=== PATIENT | female | born 1955 | race Caucasian/White ===

== ENCOUNTER 2019-09-18 16:03 | Observation (INO) | payer BC ==
--- NOTE | 2019-09-18 17:27 | RAD REPORT ---
EXAM DESCRIPTION: RAD - Chest Single View - 09/18/2019 5:13 pm CLINICAL HISTORY: COUGH Chest pain. COMPARISON: CHEST SINGLE VIEW dated 03/22/2013 FINDINGS: Portable technique limits examination quality. The lungs are grossly clear. The heart is normal in size. No displaced fractures. IMPRESSION: No acute intrathoracic process suspected.
[2019-09-18] MEDS ORDERED: NA CHLORIDE 0.9% 500 ML ONE (17:42)
[2019-09-18] MEDS ORDERED: ONDANSETRON 4 MG/2 ML VIAL ONE (17:42)
[2019-09-18] MEDS ORDERED: NA CHLORIDE 0.9% 1,000 ML ONE (17:42)
[2019-09-18 17:50] LABS: Protime INR 0.79
[2019-09-18 18:07] LABS: ALT/SGPT 28 U/L (12-78); AST/SGOT 15 U/L (15-37); Albumin 3.8 g/dL (3.4-5.0); Alkaline Phosphatase 78 U/L (45-117); BUN Blood Urea Nitrogen 21 mg/dL (7-18); Bicarbonate 30 mmol/L (21-32); Bilirubin Direct 0.2 mg/dL (0-0.2); Bilirubin Total 0.8 mg/dL (0.2-1.0); Glucose Level 118 mg/dL (74-106); Lipase 224 U/L (73-393); Magnesium 2.1 mg/dL (1.8-2.4); NT PRO-BNP 108 pg/mL (<125); Potassium 3.2 mmol/L (3.5-5.1); Protein, Total 7.2 g/dL (6.4-8.2); Sodium Level 124 mmol/L (136-145); Troponin (Emerg Dept Use Only) < 0.02 ng/mL (0.0-0.045)
[2019-09-18 18:09] LABS: Absolute Lymphocytes (CBC) 1.2 K/uL (0.7-4.9); Basophils % 0.3 % (0-1.3); Hematocrit 44.4 % (36.0-45.0); Lymphocytes % 12.7 % (15.3-44.8); MPV 6.9 fL (7.6-11.3); RBC Red Blood Cell Count 4.19 M/uL (3.86-4.86)
--- OUTSIDE RECORDS SUMMARY | 2019-09-18 18:51 | XMS REPORT | Continuity of Care Document ---
:1955 Author Organization [facility] t Address [address] [place] [address] Dr. Rose [address] [place] [id number] Care Team Providers Name Role Phone Unavailable Unavailable Unavailable Problems This patient has no known problems. Allergies, Adverse Reactions, Alerts This patient has no known allergies or adverse reactions. Medications This patient has no known medications. Procedures This patient has no known procedures. Results Test Description Test Time Test Comments Results Result Comments Source Morphology 2018-10-02 15:10:20 Test Item Value Reference Range Interpretation Comme nts RBC Morph (test code = RBC Morph) As Indicated Normal A Macrocyte (test code = Macrocyte) 1+ A Polychrom (test code = Polychrom) 1+ A Plt Estimation (test code = Plt Estimation) Normal Normal Complete Blood Count with [id number] 15:09:54 Test Item Value Reference Range Interpretation Comments WBC (test code = WBC) 11.4 x10 4.8-10.8 H RBC (test code = RBC) 4.88 x10 4.20-5.50 Hgb (test code = Hgb) 18.5 g/dL 12.0-16.0 H MCV (test code = MCV) 109.8 fL 80.0-95.0 H Hct (test code = Hct) 53.6 % 35.0-47.0 H MCHC (test code = MCHC) 34.5 g/dL 31.0-36.0 RDW (test code = RDW) <10.0 % 11.5-14.5 L MCH (test code = MCH) 37.9 pg 26.0-32.0 H Platelets (test code = 335 x10 140-440 Platelets) MPV (test code = MPV) 7.0 fL 7.5-11.2 L Slide Review (test code Smear Resu lt created by = Slide Review) GL_SET_SLIDE _REVIEW_A UTO Instr WBC (test code = 11.4 N Instr WBC) Comprehensive Metabolic [id number] 15:09:54 Test Item Value Reference Range Interpretation Comments Sodium Level (test code = 138 mmol/L 136-145 Sodium Level) Potassium Level (test code = 3.9 mmol/L 3.5-5.1 Potassium Level) Chloride Level (test code = 99 mmol/L 98-107 Chloride Level) CO2 (test code = CO2) 26 mmol/L 21-32 Anion Gap (test code = Anion 13 mmol/L 7-16 Gap) BUN (test code = BUN) 10 mg/dL 7-18 Creatinine Level (test code = 0.75 mg/dL 0.60-1.00 Creatinine Level) Glucose Level (test code = 98 mg/dL 74-106 Glucose Level) Calcium Level (test code = 8.6 mg/dL 8.5-10.1 Calcium Level) Alk Phos (test code = Alk Phos) 80 IntlUnit/L 50-136 Bilirubin Total (test code = .60 mg/dL .20-1.00 Bilirubin Total) Albumin Level (test code = 4.0 g/dL 3.4-5.0 Albumin Level) Protein Total (test code = 7.3 g/dL 6.4-8.2 Protein Total) ALT (test code = ALT) 26 IntlUnit/L 12-78 AST (test code = AST) 34 IntlUnit/L 15-37 Comprehensive Metabolic [id number] 15:09:54 Test Item Value Reference Range Interpretation Comments Sodium Level (test code = 138 mmol/L 136-145 Sodium Level) Potassium Level (test code 3.9 mmol/L 3.5-5.1 = Potassium Level) Chloride Level (test code 99 mmol/L 98-107 = Chloride Level) CO2 (test code = CO2) 26 mmol/L 21-32 Anion Gap (test code = 13 mmol/L 7-16 Anion Gap) BUN (test code = BUN) 10 mg/dL 7-18 Creatinine Level (test 0.75 mg/dL 0.60-1.00 code = Creatinine Level) Glucose Level (test code = 98 mg/dL 74-106 Glucose Level) Calcium Level (test code = 8.6 mg/dL 8.5-10.1 Calcium Level) Alk Phos (test code = Alk 80 IntlUnit/L 50-136 Phos) Bilirubin Total (test code .60 mg/dL .20-1.00 = Bilirubin Total) Albumin Level (test code = 4.0 g/dL 3.4-5.0 Albumin Level) Protein Total (test code = 7.3 g/dL 6.4-8.2 Protein Total) ALT (test code = ALT) 26 IntlUnit/L 12-78 AST (test code = AST) 34 IntlUnit/L 15-37 eGFR AA (test code = eGFR >60 mL/min/1.73 m2 N AA) Automated [id number] 15:09:54 Test Item Value Reference Range Interpretation Comments Neutro Auto (test code = Neutro Auto) 68.3 % N Lymph Auto (test code = Lymph Auto) 20.0 % N Kane Auto (test code = Kane Auto) 7.5 % N Eos, Auto (test code = Eos, Auto) 1.2 % N Basophil Auto (test code = Basophil 3.0 % N Auto) Neutro Absolute (test code = Neutro 7.8 x10 2.7-7.3 H Absolute) Lymph Absolute (test code = Lymph 2.3 x10 0.8-3.5 Absolute) Kane Absolute (test code = Kane 0.9 x10 0.3-0.9 Absolute) Eos Absolute (test code = Eos 0.1 x10 0.0-0.3 Absolute) Baso Absolute (test code = Baso 0.3 x10 0.0-0.1 H Absolute) Comprehensive Metabolic [id number] 15:09:54 Test Item Value Reference Range Interpretation Comments Sodium Level (test code = 138 mmol/L 136-145 Sodium Level) Potassium Level (test code 3.9 mmol/L 3.5-5.1 = Potassium Level) Chloride Level (test code 99 mmol/L 98-107 = Chloride Level) CO2 (test code = CO2) 26 mmol/L 21-32 Anion Gap (test code = 13 mmol/L 7-16 Anion Gap) BUN (test code = BUN) 10 mg/dL 7-18 Creatinine Level (test 0.75 mg/dL 0.60-1.00 code = Creatinine Level) Glucose Level (test code = 98 mg/dL 74-106 Glucose Level) Calcium Level (test code = 8.6 mg/dL 8.5-10.1 Calcium Level) Alk Phos (test code = Alk 80 IntlUnit/L 50-136 Phos) Bilirubin Total (test code .60 mg/dL .20-1.00 = Bilirubin Total) Albumin Level (test code = 4.0 g/dL 3.4-5.0 Albumin Level) Protein Total (test code = 7.3 g/dL 6.4-8.2 Protein Total) ALT (test code = ALT) 26 IntlUnit/L 12-78 AST (test code = AST) 34 IntlUnit/L 15-37 eGFR AA (test code = eGFR >60 mL/min/1.73 m2 N AA) eGFR Non-AA (test code = >60 mL/min/1.73 m2 N eGFR Non-AA) POC Troponin [id number] 14:50:52 Test Item Value Reference Range Interpretation Comments Troponin I, POC 0.00 ng/mL 0.00-0.08 0.6-1.9 ng/m l may indicate (test code = Myocardial Saniya ge2.0 ng/ml Troponin I, POC) is the diag nostic cutoff for Myocardial Damage. When diagnosing AMI, look for the serial rise and fall of Troponi Julio C conditions resu lting in myocardial cell damage can potentiallyincr ease cardiac Troponin I leve ls. These conditions incl ude, butare not limited to: angina, unstable angina , congestive heart faillure, myocarditis, cardiac surgery , or invasive testin g.Serial sampling as janak ropriate is recommended to detect the temporalrise an d fall of troponin levels .For diagnostic purp oses, the Troponin I resu lts should be used inconju nction with other informati on such as EKG, CKMB, clinicalobserva tions, symptons, etc. CT Brain/Head w/o [id number] 14:08:18Patient: SAM GARDNER Date/Time10/02/2018 13:54 CDTReason for ExamAltered level of consciousnessReportCT HEAD WITHOUT CONTRAST:HISTORY: Altered mental status, fall, forehead lacerationCOMPARISON: NoneMultiple transverse images were obtained through the head. Radiation reduction was achieved by using the radiographic principal of ALARA.No abnormal areas of density are seen in the brain. The ventricular system has a normal appearance.No evidence of hemorrhage, mass or acute infarction is observed.The paranasal sinuses and mastoid air cells are well aerated. Mild edema is seen in the kim scalp.IMPRESSION:1. No abnormalities seen in thebrain.2. Forehead scalp edema. Final Dictated by: MD Saroj, Praveen Mccarthyated DT/TM: 10/02/2018 2:07 pmSigned by: MD Kyle Ramon JulioSigned (Electronic Signature): 10/02/2018 2:08 pm
[2019-09-18] MEDS ORDERED: POTASSIUM 25 MEQ EFFERV TAB ONE (19:11)
[2019-09-18] MEDS ORDERED: NS KCL 20MEQ 1,000 ML IV ONE (19:11)
[2019-09-18] MEDS ORDERED: MORPHINE 4 MG/ML SYR IV PRN (20:02)
--- NOTE | 2019-09-18 20:21 | EDPHYS ---
Physician Documentation [facility] Name: Beth Melissa Age: 63 yrs Sex: Female : 1955 Arrival Date: 09/18/2019 Time: 16:08 Bed 14 Private MD: NICHOLE Physician Burton Walters HPI: 09/17 17:49 This 63 yrs old Female presents to ER via Wheelchair with complaints of prudence Fainting, Dizziness, Nausea/Vomiting. 17:49 The patient has experienced syncope, became unresponsive. Onset: The symptoms/episode prudence began/occurred yesterday. Duration: The patient has had multiple episodes, that last 20 second(s). Context: the episode(s) was witnessed, by family. Associated injury: The patient did not suffer any apparent associated injury. Associated signs and symptoms: Pertinent positives: WEAKNESS. Current symptoms: weakness. The patient has not experienced similar symptoms in the past. 17:51 The patient presents to the emergency department with nausea, that is moderate, prudence vomiting, that is continuous, diarrhea, that is intermittent. Possible causes: unknown. weak, n,v and diarrhea x 2 days , had 3 episodes today. Historical: - Allergies: 16:24 No Known Allergies; ll1 - PSHx: 16:24 ; Appendectomy; Tonsillectomy; Cholecystectomy; ll1 - Immunization history:: Adult Immunizations up to date. - Social history:: Smoking status: Patient reports the use of cigarette tobacco products, smokes one-half pack cigarettes per day, Patient uses alcohol, weekly. every other day. Patient/guardian denies using street drugs. - Family history:: not pertinent. ROS: 17:51 Constitutional: Negative for fever, chills, and weight loss, Eyes: Negative for injury, prudence pain, redness, and discharge, ENT: Negative for injury, pain, and discharge, Neck: Negative for injury, pain, and swelling, Cardiovascular: Negative for chest pain, palpitations, and edema, Respiratory: Negative for shortness of breath, cough, wheezing, and pleuritic chest pain, Abdomen/GI: Negative for abdominal pain, nausea, vomiting, diarrhea, and constipation, Back: Negative for injury and pain, MS/Extremity: Negative for injury and deformity, Skin: Negative for injury, rash, and discoloration, Psych: Negative for depression, anxiety, suicide ideation, homicidal ideation, and hallucinations, Allergy/Immunology: Negative for hives, rash, and allergies, Endocrine: Negative for neck swelling, polydipsia, polyuria, polyphagia, and marked weight changes, Hematologic/Lymphatic: Negative for swollen nodes, abnormal bleeding, and unusual bruising. 17:51 Neuro: Positive for syncope, weakness. Exam: 17:51 Constitutional: This is a well developed, well nourished patient who is awake, alert, prudence and in no acute distress. Head/Face: Normocephalic, atraumatic. Eyes: Pupils equal round and reactive to light, extra-ocular motions intact. Lids and lashes normal. Conjunctiva and sclera are non-icteric and not injected. Cornea within normal limits. Periorbital areas with no swelling, redness, or edema. ENT: Nares patent. No nasal discharge, no septal abnormalities noted. Tympanic membranes are normal and external auditory canals are clear. Oropharynx with no redness, swelling, or masses, exudates, or evidence of obstruction, uvula midline. Mucous membranes moist. Neck: Trachea midline, no thyromegaly or masses palpated, and no cervical lymphadenopathy. Supple, full range of motion without nuchal rigidity, or vertebral point tenderness. No Meningismus. Chest/axilla: Normal chest wall appearance and motion. Nontender with no deformity. No lesions are appreciated. Cardiovascular: Regular rate and rhythm with a normal S1 and S2. No gallops, murmurs, or rubs. Normal PMI, no JVD. No pulse deficits. Respiratory: Lungs have equal breath sounds bilaterally, clear to auscultation and percussion. No rales, rhonchi or wheezes noted. No increased work of breathing, no retractions or nasal flaring. Abdomen/GI: Soft, non-tender, with normal bowel sounds. No distension or tympany. No guarding or rebound. No evidence of tenderness throughout. Back: No spinal tenderness. No costovertebral tenderness. Full range of motion. Skin: Warm, dry with normal turgor. Normal color with no rashes, no lesions, and no evidence of cellulitis. MS/ Extremity: Pulses equal, no cyanosis. Neurovascular intact. Full, normal range of motion. Neuro: Awake and alert, GCS 15, oriented to person, place, time, and situation. Cranial nerves II-XII grossly intact. Motor strength 5/5 in all extremities. Sensory grossly intact. Cerebellar exam normal. Normal gait. Psych: Awake, alert, with orientation to person, place and time. Behavior, mood, and affect are within normal limits. 17:58 ECG was reviewed by the Attending Physician. [facility] Vital Signs: 16:21 BP 113 / 61; Pulse 71; Resp 19; Temp 98.0; Pulse Ox 100% ; Pain 7/10; ll1 16:45 BP 116 / 67; Pulse 72; Resp 16; Pulse Ox 95% ; vc 17:30 BP 138 / 64; Pulse 72; Resp 18; Pulse Ox 97% on R/A; vc 19:30 BP 160 / 68; Pulse 86; Resp 21; Pulse Ox 98% on R/A; vc 21:30 BP 137 / 71; Pulse 70; Resp 20; Pulse Ox 100% on R/A; vc MDM: 16:15 Patient medically screened. [facility] 17:53 Data reviewed: vital signs, nurses notes, lab test result(s), EKG, radiologic studies, prudence plain films. 17:54 Differential diagnosis: viral gastroenteritis, gastroenteritis. Differential Diagnosis: [facility] cardiac arrhythmia, idiopathic syncope, vasovagal episode. Data interpreted: monitor tech: rate is 71 beats/min, Pulse oximetry: on room air is 100 %. Test interpretation: by ED physician or midlevel provider: ECG, plain radiologic studies. Counseling: I had a detailed discussion with the patient and/or guardian regarding: the historical points, exam findings, and any diagnostic results supporting the discharge/admit diagnosis, lab results, radiology results. 17:57 ED course: bp per ems 70/40. [facility] 09/17 16:58 Order name: Basic Metabolic Panel; Complete Time: 18:23 [facility] 09/17 16:58 Order name: CBC with Diff; Complete Time: 18:23 [facility] 09/17 16:58 Order name: LFT's; Complete Time: 18:23 [facility] 09/17 16:58 Order name: Magnesium; Complete Time: 18:23 [facility] 09/17 16:58 Order name: NT PRO-BNP; Complete Time: 18:23 [facility] 09/17 16:58 Order name: PT-INR; Complete Time: 18:23 [facility] 09/17 16:58 Order name: Troponin (emerg Dept Use Only); Complete Time: 18:23 [facility] 09/17 16:58 Order name: Lipase; Complete Time: 18:23 [facility] 09/17 18:24 Order name: Urine Osmolality [facility] 09/17 18:24 Order name: Urine Sodium Random [facility] 09/17 18:24 Order name: Osmolality, Serum [facility] 09/17 20:15 Order name: Basic Metabolic Panel [facility] 09/17 20:15 Order name: Basic Metabolic Panel [facility] 09/17 20:15 Order name: CBC with Automated Diff [facility] 09/17 16:58 Order name: XRAY Chest (1 view) [facility] 09/17 20:15 Order name: Echo with Doppler [facility] 09/17 20:15 Order name: CBC with Automated Diff [facility] 09/17 20:15 Order name: Lipid Profile [facility] 09/17 20:15 Order name: Lipid Profile [facility] 09/17 20:15 Order name: Troponin I [facility] 09/17 20:15 Order name: Troponin I [facility] 09/17 20:15 Order name: Troponin I [facility] 09/17 20:15 Order name: Carotid Artery Bilateral [facility] 09/17 20:15 Order name: Carotid Artery Bilateral [facility] 09/17 20:26 Order name: Urine Dipstick--Ancillary (enter results) [facility] 09/17 16:58 Order name: EKG; Complete Time: 16:59 [facility] 09/17 16:58 Order name: Cardiac monitoring; Complete Time: 17:43 [facility] 09/17 16:58 Order name: EKG - Nurse/Tech; Complete Time: 17:43 [facility] 09/17 16:58 Order name: IV Saline Lock; Complete Time: 17:43 [facility] 09/17 16:58 Order name: Labs collected and sent; Complete Time: 17:43 [facility] 09/17 16:58 Order name: O2 Per Protocol; Complete Time: 17:43 [facility] 09/17 16:58 Order name: O2 Sat Monitoring; Complete Time: 17:44 [facility] 09/17 16:58 Order name: Urine Dipstick-Ancillary (obtain specimen); Complete Time: 20:28 [facility] 09/17 20:15 Order name: Heart Healthy [facility] 09/17 20:15 Order name: EKG Electrocardiogram [facility] 09/17 20:15 Order name: EKG Electrocardiogram [facility] EC:58 Rate is 75 beats/min. Rhythm is regular. QRS [place] is Normal. [place] interval is normal. QRS prudence interval is normal. QT interval is prolonged at 422 msec. No Q waves. T waves are Normal. No ST changes noted. Clinical impression: NSR w/ Non-specific ST/T Changes and No evidence of ischemia. Interpreted by me. Reviewed by me. Administered Medications: Discontinued: NS 0.9% 1000 ml IV at 125 ml/hr continuous 17:44 Drug: NS 0.9% 1000 ml Route: IV; Rate: 125 ml/hr; Site: right antecubital; vc 17:45 Drug: NS 0.9% 500 ml Route: IV; Rate: bolus; Site: right antecubital; vc 18:30 Drug: NS 0.9% 500 ml Route: IV; Rate: bolus; Site: right antecubital; vc 19:15 Drug: Potassium Effervescent Tablet 50 mEq Route: PO; vc 19:30 Follow up: Response: No adverse reaction vc 19:15 Drug: NS 0.9% with KCl 20 mEq/L 1000 ml Route: IV; Rate: 100 ml/hr; Site: right vc antecubital; 22:00 Follow up: IV Status: Infusion continued upon admission vc 20:47 Not Given (Patient Refused): Zofran (Ondansetron) 4 mg IVP once; over 2 minutes vc Disposition: 09/18/19 18:01 Hospitalization ordered by Filiberto Naylor for Observation. Preliminary diagnosis are Syncope and collapse, Weakness, Volume depletion, Vomiting, Diarrhea, unspecified, Tobacco abuse counseling, Tobacco use, Hypotension - resolved, Hypo-osmolality and hyponatremia, Hypokalemia. - Bed requested for Telemetry/MedSurg (observation). - Status is Observation. vc - Condition is Fair. - Problem is new. - Symptoms have improved. Signatures: Dispatcher [employer] [facility] Burton Walters MD MD cha Thompson, Miladis mt Sima Macdonald RN RN vc Lewis, Lynsay, RN RN ll1 Corrections: (The following items were deleted from the chart) 18:26 18:01 Hospitalization Ordered by Filiberto Naylor DO for Observation. Preliminary prudence diagnosis is Syncope and collapse; Weakness; Volume depletion; Vomiting; Diarrhea, unspecified; Tobacco abuse counseling; Tobacco use; Hypotension - resolved. Bed requested for Telemetry/MedSurg (observation). Status is Observation. Condition is Fair. Problem is new. Symptoms have improved. prudence 20:20 18:26 09/18/2019 18:01 Hospitalization Ordered by Filiberto Naylor DO for Observation. mt Preliminary diagnosis is Syncope and collapse; Weakness; Volume depletion; Vomiting; Diarrhea, unspecified; Tobacco abuse counseling; Tobacco use; Hypotension - resolved; Hypo-osmolality and hyponatremia; Hypokalemia. Bed requested for Telemetry/MedSurg (observation). Status is Observation. Condition is Fair. Problem is new. Symptoms have improved. [facility] 22:02 20:20 09/18/2019 18:01 Hospitalization Ordered by Filiberto Naylor DO for Observation. vc Preliminary diagnosis is Syncope and collapse; Weakness; Volume depletion; Vomiting; Diarrhea, unspecified; Tobacco abuse counseling; Tobacco use; Hypotension - resolved; Hypo-osmolality and hyponatremia; Hypokalemia. Bed requested for Telemetry/MedSurg (observation). Status is Observation. Condition is Fair. Problem is new. Symptoms have improved. mt
--- NOTE | 2019-09-18 20:21 | ER ---
Nurse's Notes [facility] Name: Beth Melissa Age: 63 yrs Sex: Female : 1955 Arrival Date: 09/18/2019 Time: 16:08 Bed 14 Private MD: Diagnosis: Syncope and collapse;Weakness;Volume depletion;Vomiting;Diarrhea, unspecified;Tobacco abuse counseling;Tobacco use;Hypotension-resolved;Hypo-osmolality and hyponatremia;Hypokalemia Presentation: 09/17 16:21 Chief complaint: Patient states: N/V began Wednesday night. Believes she had food ll1 poisoning. Lightheaded and dizzy since. told her she passed out 3 times back to back today, so he brought her in for eval. Coronavirus screen: Proceed with normal triage. Patient denies a cough. Patient denies shortness of breath or difficulty breathing. Patient denies measured and/or subjective temperature greater than 100.4F prior to today's visit. Patient denies travel on a cruise ship or to a country the [facility] currently lists as an affected area. Patient denies contact with known and/or suspected case of COVID-19. Ebola Screen: Patient denies travel to an Ebola-affected area in the 21 days before illness onset. Initial Sepsis Screen: Does the patient meet any 2 criteria? No. Patient's initial sepsis screen is negative. Risk Assessment: Do you want to hurt yourself or someone else? Patient reports no desire to harm self or others. Onset of symptoms was September 16, 2019. 16:21 Method Of Arrival: Wheelchair ll1 16:21 Acuity: PARVIN 3 ll1 16:30 Initial Sepsis Screen: Does the patient have a suspected source of infection? No. vc Patient's initial sepsis screen is negative. Historical: - Allergies: 16:24 No Known Allergies; ll1 - PSHx: 16:24 ; Appendectomy; Tonsillectomy; Cholecystectomy; ll1 - Immunization history:: Adult Immunizations up to date. - Social history:: Smoking status: Patient reports the use of cigarette tobacco products, smokes one-half pack cigarettes per day, Patient uses alcohol, weekly. every other day. Patient/guardian denies using street drugs. - Family history:: not pertinent. Screenin:30 Abuse screen: Denies threats or abuse. Nutritional screening: No deficits noted. vc Tuberculosis screening: No symptoms or risk factors identified. Fall Risk None identified. Assessment: 16:30 General: Appears in no apparent distress. uncomfortable, Behavior is calm, cooperative, vc appropriate for age. Pain: Complains of pain in Left side of neck. Neuro: Level of Consciousness is awake, alert, obeys commands. Neuro: Reports dizziness, weakness. Cardiovascular: Capillary refill < 3 seconds Patient's skin is warm and dry. Respiratory: Airway is patent Respiratory effort is even, unlabored, Respiratory pattern is regular, symmetrical. GI: No signs and/or symptoms were reported involving the gastrointestinal system. Abdomen is non-distended, Reports being nauseous and vomiting prior to arrival, patient states she is not nauseous at this time. : No signs and/or symptoms were reported regarding the genitourinary system. Derm: Skin is thin, has skin tears on right arm. Musculoskeletal: Circulation, motion, and sensation intact. Range of motion: intact in all extremities. 17:30 Reassessment: Patient appears in no apparent distress at this time. Patient and/or vc family updated on plan of care and expected duration. Pain level reassessed. Patient is alert, oriented x 3, equal unlabored respirations, skin warm/dry/pink. 18:30 Reassessment: Patient appears in no apparent distress at this time. Patient and/or vc family updated on plan of care and expected duration. Pain level reassessed. Patient is alert, oriented x 3, equal unlabored respirations, skin warm/dry/pink. 19:30 Reassessment: Patient appears in no apparent distress at this time. Patient and/or vc family updated on plan of care and expected duration. Pain level reassessed. Patient is alert, oriented x 3, equal unlabored respirations, skin warm/dry/pink. 20:30 Reassessment: Patient appears in no apparent distress at this time. Patient and/or vc family updated on plan of care and expected duration. Pain level reassessed. Patient is alert, oriented x 3, equal unlabored respirations, skin warm/dry/pink. Patient states feeling better. Patient states symptoms have improved. Vital Signs: 16:21 BP 113 / 61; Pulse 71; Resp 19; Temp 98.0; Pulse Ox 100% ; Pain 7/10; ll1 16:45 BP 116 / 67; Pulse 72; Resp 16; Pulse Ox 95% ; vc 17:30 BP 138 / 64; Pulse 72; Resp 18; Pulse Ox 97% on R/A; vc 19:30 BP 160 / 68; Pulse 86; Resp 21; Pulse Ox 98% on R/A; vc 21:30 BP 137 / 71; Pulse 70; Resp 20; Pulse Ox 100% on R/A; vc ED Course: 16:08 Patient arrived in ED. fj1 16:14 Burton Walters MD is Attending Physician. prudence 16:23 Triage completed. ll1 16:24 Arm band placed on Patient placed in an exam room, on a stretcher. ll1 17:06 Sima Macdonald, PILAR is Primary Nurse. vc 17:15 XRAY Chest (1 view) In Process Unspecified. EDMS 18:00 Filiberto Naylor DO is Hospitalizing Provider. prudence 18:00 EKG done, by ED staff, reviewed by Burton Walters MD. jp3 18:08 Placed in gown. Bed in low position. Call light in reach. Side rails up X 1. Warm jp3 blanket given. Verbal reassurance given. aluminum pourer on. Pulse ox on. NIBP on. 22:00 No provider procedures requiring assistance completed. Patient admitted, IV remains in vc place. Administered Medications: Discontinued: NS 0.9% 1000 ml IV at 125 ml/hr continuous 17:44 Drug: NS 0.9% 1000 ml Route: IV; Rate: 125 ml/hr; Site: right antecubital; vc 17:45 Drug: NS 0.9% 500 ml Route: IV; Rate: bolus; Site: right antecubital; vc 18:30 Drug: NS 0.9% 500 ml Route: IV; Rate: bolus; Site: right antecubital; vc 19:15 Drug: Potassium Effervescent Tablet 50 mEq Route: PO; vc 19:30 Follow up: Response: No adverse reaction vc 19:15 Drug: NS 0.9% with KCl 20 mEq/L 1000 ml Route: IV; Rate: 100 ml/hr; Site: right vc antecubital; 22:00 Follow up: IV Status: Infusion continued upon admission vc 20:47 Not Given (Patient Refused): Zofran (Ondansetron) 4 mg IVP once; over 2 minutes vc Outcome: 18:01 Decision to Hospitalize by Provider. prudence 22:00 Admitted to Med/surg accompanied by tech, via wheelchair. 22:00 Condition: good 22:00 Instructed on the need for admit. 22:02 Patient left the ED. Signatures: Dispatcher [employer] Burton Leiva MD MD cha Pisarski, Jacob jp3 Sima Macdonald RN RN Evan Tucker fj1 Jalen Saldivar RN RN ll1
[2019-09-18 20:33] LABS: Urine Blood NEGATIVE (NEG); Urine Glucose NEGATIVE (NEG); Urine Protein NEGATIVE (NEG); Urine Specific Gravity 1.015 (1.005-1.030)
[2019-09-18 22:20] VITALS: BMI 21.0
[2019-09-18] MEDS: METOPROLOL TAR 50 MG TAB PO SCH (23:01)
[2019-09-18] MEDS: ACETAMINOPHEN 500 MG TAB PO PRN (23:01)
[2019-09-19] MEDS: TRAZODONE 50 MG TABLET PO SCH ×2 (00:12→23:02)
[2019-09-19 06:52] LABS: Absolute Lymphocytes (CBC) 1.6 K/uL (0.7-4.9); Basophils % 0.6 % (0-1.3); Hematocrit 41.1 % (36.0-45.0); Lymphocytes % 22.9 % (15.3-44.8); MPV 7.1 fL (7.6-11.3); RBC Red Blood Cell Count 3.87 M/uL (3.86-4.86)
[2019-09-19 07:16] LABS: BUN Blood Urea Nitrogen 15 mg/dL (7-18); Bicarbonate 28 mmol/L (21-32); Glucose Level 96 mg/dL (74-106); Potassium 3.8 mmol/L (3.5-5.1); Sodium Level 130 mmol/L (136-145); Troponin I < 0.02 ng/mL (0.0-0.045)
[2019-09-19] MEDS: ENOXAPARIN 40 MG/0.4 ML SQ SCH (09:00)
[2019-09-19] MEDS: METOPROLOL TAR 50 MG TAB PO SCH ×2 (09:00→21:55)
[2019-09-19] MEDS: LOSARTAN POTASSIUM 50 MG TABLET PO SCH (09:00)
[2019-09-19] MEDS: ASPIRIN EC 81 MG TAB PO SCH (09:00)
[2019-09-19] MEDS: ESCITALOPRAM 20 MG TAB PO SCH (09:00)
[2019-09-19] MEDS: MONTELUKAST 10 MG TAB PO SCH (09:00)
[2019-09-19] MEDS: ACETAMINOPHEN 500 MG TAB PO PRN ×4 (09:01→23:19)
[2019-09-19 10:17] LABS: Urine White Blood Cell Casts OK
[2019-09-19 10:18] LABS: Anisocytosis 1+; Blood Morphology Comment NOTED (NOT SEEN); Macrocytosis 2+; Platelet Estimate ADEQ
--- NOTE | 2019-09-19 10:33 | RAD REPORT ---
EXAM DESCRIPTION: CT - Head Brain Wo Cont - 09/19/2019 10:22 am CLINICAL HISTORY: Syncope/Seizures Headache, drowsiness COMPARISON: No comparisons TECHNIQUE: All CT scans are performed using dose optimization technique as appropriate and may inclu de automated exposure control or mA/KV adjustment according to patient size. FINDINGS: No intracranial hemorrhage, hydrocephalus or extra-axial fluid collection.Mild generalized brain atrophy.No areas of brain edema or evidence of midline shift. The paranasal sinuses and mastoids are clear. The calvarium is intact. Small right frontal scalp dinorah nancy. IMPRESSION: No acute intracranial abnormality.
--- NOTE | 2019-09-19 10:59 | RAD REPORT ---
EXAM DESCRIPTION: - CP - 09/19/2019 10:49 am CLINICAL HISTORY: Syncope Headache, drowsiness COMPARISON: C Spine Ap/Lat dated 09/07/2019 TECHNIQUE: Real-time sonographic evaluation of both carotid systems was performed. Doppler interroga tion was performed with waveform tracing bilaterally. FINDINGS: Normal high resistance waveforms are noted in both external carotid arteries. The common c arotid arteries and internal carotid arteries show normal low resistance waveforms. Mild to moderate hard plaque is seen in both carotid bulbs, greater on the left. Peak systolic and en d diastolic velocity values and the ICA/CCA ratios are in the non-hemodynamically significant range. Antegrade flow seen in both vertebral arteries. IMPRESSION: Mild to moderate hard plaque is seen in both carotid bulbs, greater on the left. No evidence of a hemodynamically significant stenosis.
--- NOTE | 2019-09-19 19:24 | EKG ---
Test Date: 2019-09-19 Test Time: 08:27:27 Ammonia Print Operator: SHIELA MEASUREMENT RESULTS: Intervals: Rate: 65 MI: 148 QRSD: 76 QT: 412 QTc: 428 [place]: P: 71 MI: 148 QRS: 67 T: 75 INTERPRETIVE STATEMENTS: Normal sinus rhythm Normal ECG Compared to ECG 09/18/2019 17:47:13 Prolonged QT interval no longer present Electronically Signed On 09-19-19 19:23:54 CDT by Dennis Agee
--- NOTE | 2019-09-19 19:28 | EKG ---
Test Date: 2019-09-18 Test Time: 17:47:13 General Assembler Installer: LAURIE MEASUREMENT RESULTS: Intervals: Rate: 75 ME: 136 QRSD: 76 QT: 422 QTc: 471 [place]: P: 75 ME: 136 QRS: 74 T: 78 INTERPRETIVE STATEMENTS: Normal sinus rhythm Prolonged QT Abnormal ECG Compared to ECG 03/25/2016 11:40:40 T-wave abnormality no longer present Electronically Signed On 09-19-19 19:24:16 CDT by Dennis Agee
--- NOTE | 2019-09-19 20:13 | P.HP ---
Certification for Inpatient Patient admitted to: Observation With expected LOS: <2 Midnights Practitioner: I am a practitioner with admitting privileges, knowledge of patient current condition, hospital course, and medical plan of care. Services: Services provided to patient in accordance with Admission requirements found in Title 42 Section 412.3 of the Code of Federal Regulations Patient History Date of Service: 09/18/19 Reason for admission: Syncope History of Present Illness: Patient is a 63-year-old female who came to the hospital after passing out. Patient states she had a similar episode a few years ago. At that time she was shaking when she came around. This time were saw her and he stated that it looked like her eyes were rolling to the back of her head and she was also having she tremors. However, there was no urinary or fecal incontinence. She did not bite her tongue. She is admitted to the hospital for further workup for her syncopal episode. She is feeling much better at this time. We do have multiple studies pending. Will evaluate her neurologically, and cardiac-serna and see how she does. Allergies No Known Allergies Allergy (Verified 09/18/19 22:21) Home Medications: Trazodone [Desyrel*] 100 mg PO BEDTIME 03/20/13 Cephalexin 500 mg PO Q8H 09/18/19 Escitalopram [Lexapro] 20 mg PO DAILY 09/18/19 Losartan Potassium [Cozaar] 100 mg PO DAILY 09/18/19 Montelukast [Singulair] 10 mg PO DAILY 09/18/19 - Past Medical/Surgical History Has patient received pneumonia vaccine in the past: No Diabetic: No -: Hypertension -: Chronic Neck Pain -: c-secion, appendectomy, tonsilectomy - Family History Mother Medical History: Cancer - Social History Smoking Status: Current some day smoker CD- Drugs: No Caffeine use: No Place of Residence: Home Review of Systems 10-point ROS is otherwise unremarkable Physical Examination - Vital Signs Temperature: 97.5 F Blood Pressure: 140/56 Pulse: 66 Respirations: 17 Pulse Ox (%): 97 - Physical Exam General: Alert, In no apparent distress, Oriented x3 HEENT: Atraumatic, PERRLA, Mucous membr. moist/pink, EOMI, Sclerae nonicteric Neck: Supple, 2+ carotid pulse no bruit, No LAD, Without JVD or thyroid abnormality Respiratory: Clear to auscultation bilaterally, Normal air movement Cardiovascular: Regular rate/rhythm, Normal S1 S2 Gastrointestinal: Normal bowel sounds, Soft and benign, Non-distended, No tenderness Musculoskeletal: No clubbing, No swelling, No tenderness Integumentary: No rashes Neurological: Normal gait, Normal speech, Normal strength at 5/5 x4 extr, Normal tone, Sensation intact, Cranial nerves 3-12 intact, Normal affect Lymphatics: No axilla or inguinal lymphadenopathy Assessment & Plan - Problems (Diagnosis) (1) Syncope and collapse Current Visit: Yes Status: Acute - Plan PLAN: 1. Carotid Doppler 2. Echocardiogram 3. IV fluids 4. Telemetry 5. CT scan of the brain 6. EEG 7. GI and DVT prophylaxis Discharge Plan: Home Plan to discharge in: 48 Hours - Advance Directives Does patient have a Living Will: Yes Does patient have a Durable POA for Healthcare: No - Code Status/Comfort Care Code Status Assessed: Yes Code Status: Full Code Critical Care: No Time Spent Managing PTS Care (In Minutes): 35
--- NOTE | 2019-09-19 20:48 | P.DS ---
Discharge Date: 09/20/19 Disposition: ROUTINE DISCHARGE Discharge Condition: GOOD Reason for Admission: Syncope - Problems (1) Syncope and collapse Status: Acute Brief History of Present Illness: Patient is a 63-year-old female who came to the hospital after passing out. Patient states she had a similar episode a few years ago. At that time she was shaking when she came around. This time were saw her and he stated that it looked like her eyes were rolling to the back of her head and she was also having she tremors. However, there was no urinary or fecal incontinence. She did not bite her tongue. She is admitted to the hospital for further workup for her syncopal episode. She is feeling much better at this time. We do have multiple studies pending. Will evaluate her neurologically, and cardiac-serna and see how she does. Hospital Course: Patient's workup was unremarkable except for hyponatremia may be related to SIADH possibly from Lexapro. Patient not on diuretics. Patient is clinically doing better. EEG was negative. Most likely patient was also dehydrated. Patient is doing much better. At this time patient is stable for discharge with outpatient follow-up. Vital Signs/Physical Exam: Temp Pulse Resp BP Pulse Ox 97.5 F 66 17 140/56 L 97 09/19/19 20:46 09/19/19 20:46 09/19/19 20:46 09/19/19 20:46 09/19/19 20:46 General: Alert, In no apparent distress, Oriented x3 Laboratory Data at Discharge: WBC 7.0 K/uL (4.3-10.9) D 09/19/19 06:02 Hgb 14.3 g/dL (12.0-15.0) 09/19/19 06:02 Hct 41.1 % (36.0-45.0) 09/19/19 06:02 Plt Count 324 K/uL (152-406) 09/19/19 06:02 PT 9.4 SECONDS (9.5-12.5) L 09/18/19 17:20 INR 0.79 09/18/19 17:20 Sodium 130 mmol/L (136-145) L 09/19/19 06:02 Potassium 3.8 mmol/L (3.5-5.1) 09/19/19 06:02 BUN 15 mg/dL (7-18) 09/19/19 06:02 Creatinine 0.62 mg/dL (0.55-1.3) 09/19/19 06:02 Glucose 96 mg/dL (74-106) 09/19/19 06:02 Magnesium 2.1 mg/dL (1.8-2.4) 09/18/19 17:20 Total Bilirubin 0.8 mg/dL (0.2-1.0) 09/18/19 17:20 AST 15 U/L (15-37) 09/18/19 17:20 ALT 28 U/L (12-78) 09/18/19 17:20 Alkaline Phosphatase 78 U/L (45-117) 09/18/19 17:20 Troponin I < 0.02 ng/mL (0.0-0.045) 09/19/19 06:02 Triglycerides 84 mg/dL (<150) 09/19/19 06:02 Cholesterol 138 mg/dL (<200) 09/19/19 06:02 HDL Cholesterol 83 mg/dL (40-60) H 09/19/19 06:02 Cholesterol/HDL Ratio 1.66 09/19/19 06:02 Lipase 224 U/L (73-393) 09/18/19 17:20 Home Medications: Trazodone [Desyrel*] 100 mg PO BEDTIME 03/20/13 Cephalexin 500 mg PO Q8H 09/18/19 Escitalopram [Lexapro*] 20 mg PO DAILY 09/18/19 Montelukast [Singulair*] 10 mg PO DAILY 09/18/19 Losartan Potassium [Cozaar*] 50 mg PO DAILY #30 tablet 09/19/19 Cyanocobalamin/Cobamamide [Vitamin B-12 5,000 Mcg Tab Sl] 1 each SL DAILY #30 tab.subl 09/20/19 Folic Acid 1 mg PO DAILY #30 tablet 09/20/19 New Medications: Losartan Potassium [Cozaar*] 50 mg PO DAILY #30 tablet Folic Acid 1 mg PO DAILY #30 tablet Cyanocobalamin/Cobamamide [Vitamin B-12 5,000 Mcg Tab Sl] 1 each SL DAILY #30 tab.subl Patient Discharge Instructions: OK TO DC IV AND DC HOME. FOLLOW-UP WITH PRIMARY CARE PROVIDER IN 1-2 WEEKS. FOLLOW-UP WITH NEUROLOGY IN 1-2 WEEKS. RETURN TO THE ER IF symptoms worsen. CALL or TEXT DR. MIGUEL AT [phone] IF ANY QUESTIONS REGARDING HOSPITAL STAY. PLEASE CALL THE FLOOR AT [phone] IF ANY MEDICATION OR NURSING QUESTIONS. Diet: Regular Activity: Fall precautions Time spent managing pt's care (in minutes): 20
--- NOTE | 2019-09-20 03:01 | P.PN ---
Subjective Date of Service: 09/19/19 Patient is doing well; no new complaints. Still with some lightheadedness. Overall doing much better. Review of Systems 10-point ROS is otherwise unremarkable Physical Examination - Vital Signs Temperature: 97.5 F Blood Pressure: 135/65 Pulse: 60 Respirations: 18 Pulse Ox (%): 95 - Physical Exam General: Alert, In no apparent distress, Oriented x3 Respiratory: Clear to auscultation bilaterally, Normal air movement Cardiovascular: Regular rate/rhythm, Normal S1 S2, No murmurs Gastrointestinal: Normal bowel sounds, Soft and benign, Non-distended, No tenderness Musculoskeletal: No clubbing, No swelling, No tenderness Neurological: Normal speech, Normal strength at 5/5 x4 extr, Normal tone, Sensation intact, Cranial nerves 3-12 intact - Studies Medications List Reviewed: Yes Assessment & Plan - Problems (Diagnosis) (1) Syncope and collapse Current Visit: Yes Status: Acute (2) Hyponatremia Current Visit: Yes Status: Acute (3) Macrocytosis Current Visit: Yes Status: Acute - Plan PLAN: 1. Carotid Doppler with mild atherosclerotic disease 2. Echocardiogram pending 3. IV fluids can be discontinued and monitor sodium level 4. Telemetry showed no arrhythmias 5. CT scan of the brain did not reveal any abnormality 6. EEG in the morning 7. GI and DVT prophylaxis Discharge Plan: Home Plan to discharge in: Greater than 2 days - Advance Directives Does patient have a Living Will: Yes Does patient have a Durable POA for Healthcare: No - Code Status/Comfort Care Code Status Assessed: No Code Status: Full Code Critical Care: No
[2019-09-20] MEDS: ACETAMINOPHEN 500 MG TAB PO PRN ×2 (04:30→09:11)
[2019-09-20 05:54] LABS: Absolute Lymphocytes (CBC) 2.3 K/uL (0.7-4.9); Basophils % 0.8 % (0-1.3); MPV 7.3 fL (7.6-11.3); RBC Red Blood Cell Count 3.63 M/uL (3.86-4.86)
--- NOTE | 2019-09-20 08:48 | ECHO ---
HEIGHT: 5 ft 1 in WEIGHT: 111 lb 9.6 oz DATE OF STUDY: 09/19/[address]: Liane Dowell MD 2-DIMENSIONAL: YES M.MODE: YES DOPPLER: YES COLOR FLOW: YES TDS: PORTABLE: DEFINITY: BUBBLE STUDY: DIAGNOSIS: SYNCOPE CARDIAC HISTORY: CATHERIZATION: YES SURGERY: NO PROSTHETIC VALVE: NO PACEMAKER: NO MEASUREMENTS (cm) DIASTOLIC (NORMALS) SYSTOLIC (NORMALS) IVSd 0.8 (0.6-1.2) LA Diam 2.3 (1.9-4.0) LVEF 74% LVIDd 4.4 (3.5-5.7) LVIDs 2.5 (2.0-3.5) %FS 43% LVPWd 0.9 (0.6-1.2) Ao Diam 3.0 (2.0-3.7) 2 DIMENSIONAL ASSESSMENT: RIGHT ATRIUM: NORMAL LEFT ATRIUM: NORMAL RIGHT VENTRICLE: NORMAL LEFT VENTRICLE: NORMAL TRICUSPID VALVE: NORMAL MITRAL VALVE: NORMAL PULMONIC VALVE: NORMAL AORTIC VALVE: NORMAL PERICARDIAL EFFUSION: NONE AORTIC ROOT: NORMAL LEFT VENTRICULAR WALL MOTION: NORMAL DOPPLER/COLOR FLOW: NORMAL COMMENTS: NORMAL LEFT VENTRICULAR SIZE AND FUNCTION. NO WALL MOTION ABNORMALITY. NO EFFUSION. TECHNOLOGIST: MARIAM NEFF
[2019-09-20] MEDS: ENOXAPARIN 40 MG/0.4 ML SQ SCH (09:00)
[2019-09-20] MEDS: ESCITALOPRAM 20 MG TAB PO SCH (09:14)
[2019-09-20] MEDS: LOSARTAN POTASSIUM 50 MG TABLET PO SCH (09:14)
[2019-09-20] MEDS: ASPIRIN EC 81 MG TAB PO SCH (09:14)
[2019-09-20] MEDS: MONTELUKAST 10 MG TAB PO SCH (09:15)
[2019-09-20] MEDS: METOPROLOL TAR 50 MG TAB PO SCH (09:15)
[2019-09-20 09:53] LABS: ALT/SGPT 20 U/L (12-78); AST/SGOT 17 U/L (15-37); Alkaline Phosphatase 56 U/L (45-117); BUN Blood Urea Nitrogen 14 mg/dL (7-18); Bicarbonate 24 mmol/L (21-32); Bilirubin Total 0.5 mg/dL (0.2-1.0); Folic Acid, (Folate) 6.7 ng/mL (3.1-17.5); Glucose Level 89 mg/dL (74-106); Magnesium 1.9 mg/dL (1.8-2.4); Protein, Total 5.7 g/dL (6.4-8.2); Sodium Level 131 mmol/L (136-145)
[2019-09-20 10:06] VITALS: O2SAT 97
[2019-09-22 03:20] VITALS: BP 135/65; TEMP 97.5
--- NOTE | 2019-10-02 14:22 | EEG ---
CHART: [id number] TEST ID#: [id number] DATE OF STUDY: 09/20/2019 THE EEG WAS RECORDED PORTABLE IN THE PATIENT'S ROOM ON A 17 CHANNEL MACHINE. ELECTRODES WERE APPLIED IN THE USUAL MANNER USING THE INTERNATIONAL 10-20 SYSTEM. THE WAKING BACKGROUND RHYTHM IN THIS RECORD CONSISTS OF WELL DEVELOPED AND WELL ORGANIZED WAVES OF 9 HZ., WHICH ATTENUATE NORMALLY WITH EYE OPENING. THERE ARE NO FOCAL OR LATERALIZING FEATURES. NO EPILEPTIFORM ACTIVITY APPEARS. SLEEP OCCURRED NATURALLY. IN ADDITION NORMAL SLEEP PATTERNS ARE PRESENT. HYPERVENTILATION WAS NOT PERFORMED. PHOTIC STIMULATION PRODUCED FAIR DRIVING BILATERALLY. IMPRESSION: NORMAL EEG FOR THE AGE OF THE PATIENT IN [place], DROWSINESS AND SLEEP.
== END 2019-09-20 12:47 | disposition home or self-care (01) ==
LOC: ER 16:03 → ERHOLD 20:02 → 2ND 21:41
PROVIDERS: ADMIT Hospitalist; ATTEND Hospitalist
DX: R55 Syncope and collapse (principal); E87.1 Hypo-osmolality and hyponatremia; D75.89 Other specified diseases of blood and blood-forming organs; I65.23 Occlusion and stenosis of bilateral carotid arteries; R94.31 Abnormal electrocardiogram [ECG] [EKG]; E86.9 Volume depletion, unspecified; R11.10 Vomiting, unspecified; R19.7 Diarrhea, unspecified; E87.6 Hypokalemia; I10 Essential (primary) hypertension; F17.210 Nicotine dependence, cigarettes, uncomplicated; Z79.899 Other long term (current) drug therapy
CPT/HCPCS: 36415; 70450; 71045; 80048; 80053; 80061; 80076; 81003; 82533; 82607; 82746; 83540; 83690; 83735; 83880; 83930; 83935; 84300; 84439; 84443; 84484; 85025; 85610; 93005; 93306; 93880; 95819; 96360; 96361; 99285; G0378; J1650; J2405; J7030; J7040

== ENCOUNTER 2020-12-23 16:47 | Emergency (ER) | payer BC ==
--- OUTSIDE RECORDS SUMMARY | 2020-12-23 16:49 | XMS REPORT | Continuity of Care Document ---
:1955 Author Organization [facility] t Address [address] [place] [address] Care Team Providers Name Role Phone Unavailable [...] Estimation) Normal Normal Complete Blood Count with [id number] 15:09:54 Test Item Value Reference Range Interpretation [...] = 11.4 N Instr WBC) Comprehensive Metabolic [id number] 15:09:54 Test Item Value Reference Range Interpretation [...] = AST) 34 IntlUnit/L 15-37 Comprehensive Metabolic [id number] 15:09:54 Test Item Value Reference Range Interpretation [...] eGFR >60 mL/min/1.73 m2 N AA) Automated [id number] 15:09:54 Test Item Value Reference Range Interpretation Comments Neutro Auto (test code = Neutro Auto) 68.3 % N Lymph Auto (test code = Lymph Auto) 20.0 % N Dane Auto (test code = Dane Auto) 7.5 % N Eos, Auto (test code = Eos, Auto) 1.2 % N Basophil Auto (test code = Basophil 3.0 % N Auto) Neutro Absolute (test code = Neutro 7.8 x10 2.7-7.3 H Absolute) Lymph Absolute (test code = Lymph 2.3 x10 0.8-3.5 Absolute) Dane Absolute (test code = Dane 0.9 x10 0.3-0.9 Absolute) Eos Absolute (test code = Eos 0.1 x10 0.0-0.3 Absolute) Baso Absolute (test code = Baso 0.3 x10 0.0-0.1 H Absolute) Comprehensive Metabolic [id number] 15:09:54 Test Item Value Reference Range Interpretation [...] mL/min/1.73 m2 N eGFR Non-AA) POC Troponin [id number] 14:50:52 Test Item Value Reference Range Interpretation [...] clinicalobserva tions, symptons, etc. CT Brain/Head w/o [id number] 14:08:18Patient: SAM GARDNER Date/Time10/02/2018 13:54 CDTReason for [...] Forehead scalp edema. Final Dictated by: MD Kyle Ramon JulioDictated DT/TM: 10/02/2018 2:07 pmSigned by: MD Kyle Ramon JulioSigned (Electronic Signature): 10/02/2018 2:08 pm
[2020-12-23] MEDS ORDERED: NA CHLORIDE 0.9% 500 ML ONE ×2 (19:10→22:17)
[2020-12-23] MEDS ORDERED: ONDANSETRON 4 MG/2 ML VIAL ONE (19:10)
[2020-12-23 19:11] LABS: Urine Blood Trace-lysed (Negative); Urine Glucose Negative (Negative); Urine Protein 2+ (Negative); Urine Specific Gravity >=1.030 (1.005-1.030); Urine pH 5.5 (5.0-7.0)
[2020-12-23] MEDS ORDERED: FAMOTIDINE 20 MG/2 ML VIAL IV ONE (19:12)
--- NOTE | 2020-12-23 19:20 | RAD REPORT ---
EXAM DESCRIPTION: RAD - Chest Single View - 12/23/2020 7:00 pm CLINICAL HISTORY: COUGH Chest pain. COMPARISON: Chest Single View dated 09/18/2019; CHEST SINGLE VIEW dated 03/22/2013 FINDINGS: Portable technique limits examination quality. The lungs are emphysematous but grossly clear. The heart is normal in size. No displaced fractures. IMPRESSION: Mild COPD.
[2020-12-23 19:34] LABS: Absolute Lymphocytes (CBC) 1.5 K/uL (0.7-4.9); Basophils % 0.3 % (0-1.3); Hematocrit 38.2 % (36.0-45.0); Lymphocytes % 13.8 % (15.3-44.8); MPV 7.5 fL (7.6-11.3); Protime INR 0.83; RBC Red Blood Cell Count 3.74 M/uL (3.86-4.86)
[2020-12-23 19:56] LABS: ALT/SGPT 24 U/L (12-78); AST/SGOT 22 U/L (15-37); Albumin 4.4 g/dL (3.4-5.0); Alkaline Phosphatase 70 U/L (45-117); BUN Blood Urea Nitrogen 22 mg/dL (7-18); Bicarbonate 29 mmol/L (21-32); Bilirubin Direct 0.3 mg/dL (0-0.2); Bilirubin Total 0.8 mg/dL (0.2-1.0); Glucose Level 119 mg/dL (74-106); Lipase 132 U/L (73-393); Magnesium 2.1 mg/dL (1.8-2.4); NT PRO-BNP 1130 pg/mL (<125); Potassium 3.2 mmol/L (3.5-5.1); Protein, Total 8.3 g/dL (6.4-8.2); Sodium Level 131 mmol/L (136-145); Troponin (Emerg Dept Use Only) < 0.02 ng/mL (0.0-0.045)
[2020-12-23 20:20] LABS: Urine Bacteria 20-50 /HPF (<20)
[2020-12-23 20:21] LABS: Urine Amorphous Sediment 1+ /HPF (NONE SEEN); Urine Mucus 1+ /HPF (NONE SEEN); Urine RBC <5 /HPF (NONE SEEN)
[2020-12-23] MEDS ORDERED: POTASSIUM 25 MEQ EFFERV TAB ONE (21:42)
--- NOTE | 2020-12-23 21:45 | RAD REPORT ---
EXAM DESCRIPTION: CT - Stone Protocol - 12/23/2020 9:31 pm CLINICAL HISTORY: Flank pain. FLANK PAIN COMPARISON: CT ABD PELVIS W CONTRAST dated 03/24/2013 TECHNIQUE: Axial images were obtained without oral or IV contrast. Lack of contrast limits solid org an and vascular assessment. The [id number]-ql-ijnu spans the entirety of the system partially obscuring uppermost abdomen and lung bases. Coronal reformatted images were obtained and reviewed. All CT scans are performed using dose optimization technique as appropriate and may include automated exposure control or mA/KV adjustment according to patient size. FINDINGS: The lower lung orantes are clear. Cholecystectomy Imaged portions of the liver and spleen show no suspicious findings on non-contrast imaging. The panc reas and adrenal glands are normal. No pathologic lymphadenopathy in the abdomen or pelvis. No urinary tract stones or obstructive uropathy. No bowel obstruction, free air, free fluid or abscess. The appendix is not identified as a discrete s tructure, however, no secondary findings of appendicitis are identified. Moderate sigmoid diverticulo sis is present with fecal retention. Moderate lumbosacral degenerative changes. IMPRESSION: No urinary tract stones or obstructive uropathy.
--- NOTE | 2020-12-23 22:06 | EDPHYS ---
Physician Documentation [facility] Name: Beth Melissa Age: 65 yrs Sex: Female : 1955 Arrival Date: 12/23/2020 Time: 16:49 Bed 11 Private MD: Gurvinder Aguilar C ED Physician Burton Walters HPI: 12/23 18:40 This 65 yrs old Female presents to ER via Ambulatory with complaints of cp Unable to Urinate, Nausea. 18:40 The patient presents to the emergency department with nausea, with "dry heaves", cp vomiting, that is intermittent. 18:40 Onset: The symptoms/episode began/occurred 3 day(s) ago. Possible causes: diagnosed cp with UTI last week, currently taking oral Bactrim. Associated signs and symptoms: Pertinent positives: abdominal pain, anorexia, left flank pain, Pertinent negatives: diarrhea, fever, GI bleeding. Severity of symptoms: in the emergency department the symptoms are unchanged despite home interventions. Patient reports she has not urinated today. Historical: - Allergies: 17:09 No Known Allergies; ll1 - PMHx: 17:09 low sodium; Hypertensive disorder; ll1 - PSHx: 17:09 section; Cholecystectomy; ll1 - Immunization history:: Client reports receiving the 2nd dose of the Covid vaccine, Flu vaccine status is unknown. - Social history:: Smoking status: Patient reports the use of cigarette tobacco products, smokes one-half pack cigarettes per day. ROS: 18:45 Constitutional: Positive for poor PO intake, Negative for body aches, chills, fever. cp 18:45 Eyes: Negative for injury, pain, redness, and discharge. cp 18:45 ENT: Negative for ear pain, sore throat, difficulty swallowing, difficulty handling secretions. 18:45 Cardiovascular: Negative for chest pain, palpitations. 18:45 Respiratory: Negative for cough, shortness of breath, wheezing. 18:45 Abdomen/GI: Positive for abdominal pain, nausea and vomiting, anorexia, Negative for diarrhea, constipation, hematemesis, black/tarry stool, rectal bleeding. 18:45 Back: Positive for flank pain, on the left. 18:45 : Positive for decreased urinary output. 18:45 Skin: Negative for rash. 18:45 Neuro: Positive for weakness, Negative for altered mental status, headache. 18:45 All other systems are negative. Exam: 18:50 Constitutional: The patient appears in no acute distress, alert, awake, cp non-diaphoretic, non-toxic, well developed, well nourished. 18:50 Head/Face: Normocephalic, atraumatic. cp 18:50 Eyes: Periorbital structures: appear normal, Conjunctiva: normal, no exudate, no injection, Sclera: no appreciated abnormality, Lids and lashes: appear normal, bilaterally. 18:50 ENT: External ear(s): are unremarkable, Nose: is normal, Mouth: Lips: moist, Oral mucosa: moist, Posterior pharynx: Airway: no evidence of obstruction, patent. 18:50 Neck: ROM/movement: is normal, is supple, without pain, no range of motions limitations, no meningismus. 18:50 Chest/axilla: Inspection: normal, Palpation: is normal, no crepitus, no tenderness. 18:50 Cardiovascular: Rate: normal, Rhythm: regular, Edema: is not appreciated, JVD: is not appreciated. 18:50 Respiratory: the patient does not display signs of respiratory distress, Respirations: normal, no use of accessory muscles, no retractions, labored breathing, is not present, Breath sounds: are clear throughout, no decreased breath sounds, no stridor, no wheezing. 18:50 Abdomen/GI: Inspection: abdomen appears normal, Bowel sounds: active, all quadrants, Palpation: abdomen is soft and non-tender, in all quadrants. 18:50 Back: pain, that is mild, of the left mid back, ROM is normal. 18:50 Skin: no rash present. 18:50 Neuro: Orientation: to person, place \\T\\ time. Mentation: is normal, Cerebellar function: is grossly normal, Motor: moves all fours, strength is normal, Sensation: is normal, Gait: is steady. 19:05 ECG was reviewed by the Attending Physician. cp Vital Signs: 17:11 BP 96 / 69; Pulse 94; Resp 17; Temp 99.0; Pulse Ox 98% on R/A; Weight 53.52 kg; Height ll1 5 ft. 1 in. (154.94 cm); Pain 4/10; 19:12 BP 134 / 70; Pulse 83; Resp 16; Pulse Ox 100% ; vg1 20:02 BP 147 / 72; Pulse 80; Resp 16; Pulse Ox 100% ; vg1 20:43 BP 136 / 60 Supine; Pulse 80; vg1 20:45 BP 130 / 67 Sitting; Pulse 84; vg1 20:47 BP 120 / 64 Standing; Pulse 88; vg1 21:45 BP 146 / 70; Pulse 82; Resp 16; Pulse Ox 100% ; vg1 17:11 Body Mass Index 22.30 (53.52 kg, 154.94 cm) ll1 MDM: 18:24 Patient medically screened. cp 19:00 Differential diagnosis: gastritis, viral gastroenteritis, gastroenteritis, dehydration, cp sepsis,electrolyte abnormality, UTI, kidney stone. 22:05 Data reviewed: vital signs, nurses notes, lab test result(s), EKG, radiologic studies, cp CT scan, plain films. 22:05 Data interpreted: Pulse oximetry: on room air is 100 %. Interpretation: normal. Test cp interpretation: by ED physician or midlevel provider: ECG, plain radiologic studies. 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 Response to treatment: the patient's symptoms have markedly improved after treatment, VSS. Nausea markedly improved, vomiting resolved. Discussed results of labs, EKG and radiology studies. Will discharge to home to continue to orally hydrate. Discussed findings with DR Aguilar. Patient instructed to stop Bactrim and start oral Cipro 500 mg bid times 1 week. 12/23 18:35 Order name: Basic Metabolic Panel; Complete Time: 21:08 cp 12/23 21:08 Interpretation: Normal except: NA 131; K 3.2; CL 94; GLUC 119; BUN 22; CRE 1.32; GFR 40.cp 12/23 18:35 Order name: CBC with Diff; Complete Time: 19:54 cp 12/23 19:54 Interpretation: Normal except: RBC 3.74; MCV 102.0; MCH 35.1; MPV 7.5; MO% 74.2; LYM% cp 13.8. 12/23 18:35 Order name: LFT's; Complete Time: 21:08 cp / 21:10 Interpretation: Normal except: BILID 0.3; TP 8.3; GLOB 3.9. cp / 18:35 Order name: Magnesium; Complete Time: 21:08 cp / 18:35 Order name: NT PRO-BNP; Complete Time: 21:08 cp / 18:35 Order name: PT-INR; Complete Time: 19:54 cp 12/23 18:35 Order name: Troponin (emerg Dept Use Only); Complete Time: 21:08 cp / 18:35 Order name: Urine Microscopic Only; Complete Time: 21:08 cp / 21:10 Interpretation: Normal except: UBACT 20-50; SQEPI 10-20. cp / 18:35 Order name: Lactate; Complete Time: 21:50 cp / 18:35 Order name: Blood Culture Adult (2) cp / 18:35 Order name: Lipase; Complete Time: 21:08 cp 12/23 18:35 Order name: Procalcitonin; Complete Time: 21:08 cp 12/23 19:10 Order name: Urine Dipstick-Ancillary; Complete Time: 19:54 EDMS 12/23 19:54 Interpretation: Normal except: UBLD Trace-lysed; UPROT 2+. cp / 18:35 Order name: XRAY Chest (1 view); Complete Time: 19:54 cp / 18:35 Order name: EKG; Complete Time: 18:37 cp 12/23 18:35 Order name: Cardiac monitoring; Complete Time: 19:00 cp 12/23 18:35 Order name: EKG - Nurse/Tech; Complete Time: 19:00 cp 12/23 18:35 Order name: IV Saline Lock; Complete Time: 18:48 cp 12/23 18:35 Order name: Labs collected and sent; Complete Time: 18:48 cp 12/23 20:19 Order name: SARS-COV-2 RT PCR; Complete Time: 21:08 EDMS 12/23 20:23 Order name: Urine Culture EDMS 12/23 21:09 Order name: CT Stone Protocol; Complete Time: 21:50 cp 12/23 21:51 Interpretation: Report reviewed. cp 12/23 18:35 Order name: O2 Per Protocol; Complete Time: 18:48 cp 12/23 18:35 Order name: O2 Sat Monitoring; Complete Time: 18:48 cp 12/23 18:35 Order name: Orthostatics; Complete Time: 20:48 cp 12/23 21:31 Order name: PO challenge; Complete Time: 21:57 cp EC:05 Rate is 82 beats/min. Rhythm is regular. ID interval is normal. QRS interval is normal. cp QT interval is normal. T waves are Inverted in leads aVL, aVR. Interpreted by me. Reviewed by me. Administered Medications: 19:05 Drug: Zofran (Ondansetron) 4 mg Route: IVP; Site: right antecubital; kg 21:15 Follow up: Response: No adverse reaction vg1 19:07 Drug: NS 0.9% 500 ml Route: IV; Rate: bolus; Site: right antecubital; kg 19:08 Drug: Pepcid (famotidine) 10 mg Route: IVP; Site: right antecubital; kg 21:15 Follow up: Response: No adverse reaction; Marked relief of symptoms vg1 21:23 Drug: Potassium Effervescent Tablet 50 mEq Route: PO; vg1 21:57 Follow up: Response: No adverse reaction vg1 21:39 CANCELLED (Duplicate Order): NS 0.9% 500 ml IV at bolus once vg1 21:57 Drug: NS 0.9% 500 ml Route: IV; Rate: 500 ml/hr; Site: right antecubital; vg1 22:11 Drug: Cipro (ciprofloxacin) 500 mg Route: PO; vg1 Disposition: 12/24 08:49 Co-signature as Attending Physician, Burton Walters MD I agree with the assessment and prudence plan of care. Disposition Summary: 12/23/20 22:05 Discharge Ordered Location: Home cp Problem: new cp Symptoms: have improved cp Condition: Stable cp Diagnosis - Dehydration cp - UTI/ Urinary tract infection, site not specified cp - Nausea with vomiting, unspecified cp Followup: cp - With: Gurvinder Aguilar MD - When: 2 - 3 days - Reason: Recheck today's complaints Discharge Instructions: - Discharge Summary Sheet cp - Dehydration, Adult cp - Potassium Content of Foods cp - Urinary Tract Infection, Adult cp Forms: - Medication Reconciliation Form cp - Thank You Letter cp - Antibiotic Education cp - Prescription Opioid Use cp Prescriptions: - Zofran 4 mg Oral Tablet - take 1 tablet by ORAL route every 12 hours As needed; 20 tablet; Refills: 0, cp Product Selection Permitted - Potassium Chloride 10 mEq Oral capsule, extended release - take 1 tablet by ORAL route every 12 hours for 5 days; 10 tablet; Refills: 0, cp Product Selection Permitted - Cipro 500 mg Oral Tablet - take 1 tablet by ORAL route every 12 hours for 7 days; 14 tablet; Refills: 0, cp Product Selection Permitted Signatures: Dispatcher [employer] EDND Burton Walters MD MD cha Page, Corey, PA PA Shira Harrison, RN RN vg1 Jalen Saldivar RN RN ll1 Faina Canela RN RN kg Corrections: (The following items were deleted from the chart) 12/23 19:18 18:36 CORONAVIRUS+BRZ ordered. [facility] 21:39 21:24 NS 0.9% 500 ml IV at bolus once ordered. vg1 vg1
--- NOTE | 2020-12-23 22:06 | ER ---
Nurse's Notes [facility] Name: Beth Melissa Age: 65 yrs Sex: Female : 1955 Arrival Date: 12/23/2020 Time: 16:49 Bed 11 Private MD: Gurvinder Aguilar C Diagnosis: Dehydration;UTI/ Urinary tract infection, site not specified;Nausea with vomiting, unspecified Presentation: 12/23 17:11 Chief complaint: Patient states: Diagnosed with UTI with Dr. Aguilar . Has had N/V ll1 since Wednesday. Unable to urinate well since last night, just dribbling. [place] hot/cold last night. Coronavirus screen: Vaccine status: Patient reports receiving the 2nd dose of the covid vaccine. Client denies travel out of the [place] in the last 14 days. nausea, vomiting. Client presents with at least one sign or symptom that may indicate coronavirus-19. Standard/surgical mask placed on the client. Ebola Screen: Patient denies travel to an Ebola-affected area in the 21 days before illness onset. Initial Sepsis Screen: Does the patient meet any 2 criteria? HR > 90 bpm. No. Patient's initial sepsis screen is negative. Does the patient have a suspected source of infection? Yes: Dysuria/Frequency/Urgency/UTI. Risk Assessment: Do you want to hurt yourself or someone else? Patient reports no desire to harm self or others. Onset of symptoms was December 20, 2020. 17:11 Method Of Arrival: Ambulatory ll1 17:11 Acuity: PARVIN 3 ll1 Historical: - Allergies: 17:09 No Known Allergies; ll1 - PMHx: 17:09 low sodium; Hypertensive disorder; ll1 - PSHx: 17:09 section; Cholecystectomy; ll1 - Immunization history:: Client reports receiving the 2nd dose of the Covid vaccine, Flu vaccine status is unknown. - Social history:: Smoking status: Patient reports the use of cigarette tobacco products, smokes one-half pack cigarettes per day. Screenin:12 Abuse screen: Denies threats or abuse. Nutritional screening: No deficits noted. vg1 Tuberculosis screening: No symptoms or risk factors identified. Fall Risk No fall in past 12 months (0 pts). No secondary diagnosis (0 pts). IV access (20 points). Ambulatory Aid- None/Bed Rest/Nurse Assist (0 pts). Gait- Normal/Bed Rest/Wheelchair (0 pts) Mental Status- Oriented to own ability (0 pts). Total Smith Fall Scale indicates No Risk (0-24 pts). Assessment: 19:00 General: Appears in no apparent distress. comfortable, Behavior is calm, cooperative. vg1 Pain: Complains of pain in Left flank Pain currently is 4 out of 10 on a pain scale. Pain began 2-3 days ago. Neuro: Level of Consciousness is awake, alert, obeys commands, Oriented to person, place, time, situation. Cardiovascular: Patient's skin is warm and dry. Respiratory: Airway is patent Respiratory effort is even, unlabored. GI: Abdomen is flat, Reports nausea, vomiting. : Reports inability to void, since last night. EENT: No signs and/or symptoms were reported regarding the EENT system. Derm: Skin is intact, is healthy with good turgor. Musculoskeletal: Circulation, motion, and sensation intact. 20:01 Reassessment: Patient appears in no apparent distress at this time. No changes from vg1 previously documented assessment. Patient and/or family updated on plan of care and expected duration. Pain level reassessed. Patient is alert, oriented x 3, equal unlabored respirations, skin warm/dry/pink. 20:48 Reassessment: Pt stated felt dizzy while in standing positing during orthostatic BP. vg1 Provider notified. 21:58 Reassessment: Patient appears in no apparent distress at this time. Patient and/or vg1 family updated on plan of care and expected duration. Pain level reassessed. Patient is alert, oriented x 3, equal unlabored respirations, skin warm/dry/pink. Patient states feeling better. 22:11 Reassessment: Pt up for d/c; currently waiting for IV fluids to complete. vg1 Vital Signs: 17:11 BP 96 / 69; Pulse 94; Resp 17; Temp 99.0; Pulse Ox 98% on R/A; Weight 53.52 kg; Height ll1 5 ft. 1 in. (154.94 cm); Pain 4/10; 19:12 BP 134 / 70; Pulse 83; Resp 16; Pulse Ox 100% ; vg1 20:02 BP 147 / 72; Pulse 80; Resp 16; Pulse Ox 100% ; vg1 20:43 BP 136 / 60 Supine; Pulse 80; vg1 20:45 BP 130 / 67 Sitting; Pulse 84; vg1 20:47 BP 120 / 64 Standing; Pulse 88; vg1 21:45 BP 146 / 70; Pulse 82; Resp 16; Pulse Ox 100% ; vg1 17:11 Body Mass Index 22.30 (53.52 kg, 154.94 cm) ll1 ED Course: 16:49 Patient arrived in ED. ds1 16:50 Ugo Alonzo MD is Private Physician. ds1 16:50 Gurvinder Aguilar MD is Private Physician. ds1 17:09 Arm band placed on. ll1 17:14 Triage completed. ll1 18:23 Burton Diego PA is PHCP. cp 18:23 Burton Walters MD is Attending Physician. cp 18:25 Shira Kyle RN is Primary Nurse. vg1 19:00 XRAY Chest (1 view) In Process Unspecified. EDMS 19:00 Inserted saline lock: 20 gauge in right antecubital area, using aseptic technique. vg1 ,using aseptic technique. completed by Faina QUEZADA Blood collected. 19:02 Initial lab(s) drawn, by ED staff, sent to lab. First set of blood cultures drawn. vg1 19:07 Basic Metabolic Panel Sent. kg 19:07 CBC with Diff Sent. kg 19:07 LFT's Sent. kg 19:07 Magnesium Sent. kg 19:07 NT PRO-BNP Sent. kg 19:07 PT-INR Sent. kg 19:07 Troponin (emerg Dept Use Only) Sent. kg 19:07 Lactate Sent. kg 19:07 Procalcitonin Sent. kg 19:07 Lipase Sent. kg 19:07 Blood Culture Adult (2) Sent. kg 19:12 Patient has correct armband on for positive identification. Bed in low position. Call vg1 light in reach. Adult w/ patient. 19:12 No provider procedures requiring assistance completed. vg1 21:31 CT Stone Protocol In Process Unspecified. EDMS 22:05 Gurvinder Aguilar MD is Referral Physician. cp 22:12 Report given to Nano QUEZADA. vg1 Administered Medications: 19:05 Drug: Zofran (Ondansetron) 4 mg Route: IVP; Site: right antecubital; kg 21:15 Follow up: Response: No adverse reaction vg1 19:07 Drug: NS 0.9% 500 ml Route: IV; Rate: bolus; Site: right antecubital; kg 19:08 Drug: Pepcid (famotidine) 10 mg Route: IVP; Site: right antecubital; kg 21:15 Follow up: Response: No adverse reaction; Marked relief of symptoms vg1 21:23 Drug: Potassium Effervescent Tablet 50 mEq Route: PO; vg1 21:57 Follow up: Response: No adverse reaction vg1 21:39 CANCELLED (Duplicate Order): NS 0.9% 500 ml IV at bolus once vg1 21:57 Drug: NS 0.9% 500 ml Route: IV; Rate: 500 ml/hr; Site: right antecubital; vg1 22:11 Drug: Cipro (ciprofloxacin) 500 mg Route: PO; vg1 Outcome: 22:05 Discharge ordered by MD. ray 23:40 Patient left the ED. ea Signatures: Dispatcher [employer] EDDE Mary Noriega dsBurton Rehman PA PA cp Antunez, Elena RN Shira Beverly ea, RN RN vg1 Jalen Saldivar RN RN ll1 Faina Canela RN RN kg
[2020-12-23] MEDS ORDERED: CIPROFLOXACIN HCL 500 MG TAB ONE (22:34)
[2020-12-24 00:09] VITALS: TEMP 99
[2020-12-24 00:10] VITALS: O2SAT 100
[2020-12-24 00:16] VITALS: BP 146/70
--- NOTE | 2020-12-24 10:56 | EKG ---
Test Date: 2020-12-23 Test Time: 18:58:50 Supervisor Rolling Room: KIKI MEASUREMENT RESULTS: Intervals: Rate: 82 [place]: 126 QRSD: 78 QT: 414 QTc: 483 [place]: P: 81 [place]: 126 QRS: 76 T: 79 INTERPRETIVE STATEMENTS: Normal sinus rhythm Normal ECG Compared to ECG 09/19/2019 08:27:27 No significant changes Electronically Signed On 12-24-20 10:54:04 CDT by Dennis Agee
== END 2020-12-23 23:40 | disposition home or self-care (01) ==
LOC: ER 16:47
DX: E86.0 Dehydration (principal); N39.0 Urinary tract infection, site not specified; I10 Essential (primary) hypertension; F17.210 Nicotine dependence, cigarettes, uncomplicated; Z20.822 Contact with and (suspected) exposure to COVID-19
CPT/HCPCS: 93005; 87040 ×2; 87088; 85025; 87086; 80048; 36415; 83735; 85610; 80076; 83605; 84484; 83690; 84145; 83880; 76377; 74176; 71045; 96375; 96374; 99284; U0003; J7040 ×2; J2405; 81003; 81015